=== PATIENT | male | born 1965 | race Caucasian/White ===

== ENCOUNTER 2016-04-13 11:29 | Emergency (ER) | payer OTHER ==
[~2016-04-13] VITALS: Ht 177.8 cm; Wt 90.9 kg
[2016-04-13 11:37] VITALS: BP 137/72; RESP 18; O2SAT 98
--- NOTE | 2016-04-13 11:51 | ED.REPORT ---
HPI-Ear Pain/Problem/FB Date of Service Apr 13, 2016 ED Provider: Victorino Kruger MD Clarke is a 50-year-old male with a chief complaint of right ear pain and reduced hearing. Patient states that he has had cold symptoms for approximately 3 weeks including fever, fatigue, cough. Over the last 3 days he developed right ear pain and reduced hearing associated with tinnitus and right eye pressure as well as mastoid pressure. He also reports a syncopal episode prior to presentation that began while he was kneeling working on a floor. He felt his face become flushed and "woke up on my side" reports a subsequent episode of near syncope. Nursing Notes Stated Complaint: HEAD/EAR PRESSURE Chief Complaint: ENT & Mouth Nursing Notes Reviewed: Yes Allergies: Coded Allergies: codeine (Verified Allergy, Unknown, 12/20/08) Scheduled Amoxicillin (Amoxicillin) 500 Mg Tablet 500 MG PO BID Scheduled PRN Benzonatate (Tessalon Perle) 100 Mg Capsule 100 MG PO TID PRN PRN For Cough General Time Seen by MD: 11:46 Chief Complaint Other Hx Obtained From: Patient Arrived By: Walk-in Onset Occurred: Yesterday Severity: Current: No pain currently Pertinent Negative: Pt denies other symptoms Recent Healthcare: No recent doctor visit, No recent hospitalization Similar Sx Previous: No Past Medical History Past Medical History Reports: Hypertension Past Surgical History Back surgery Family History Father had a OK at 50 but lived another 20 years and was a smoker Smoking History Never Smoker Social History Alcohol Use: 3-5 per day Ambulatory Status Independent Review of Systems Constitutional: Denies: Chills, Fever Complete sys rev & neg: except as marked. Physical Exam General: Well appearing, well developed, well nourished, no acute distress. Head: Atraumatic, normocephalic. No mastoid tenderness. Eyes: No scleral icterus or injection. No discharge. PERRL. Vision grossly intact. Right Ear: Pinna and tragus nontender with manipulation. External auditory canal patent, atraumatic and without discharge. Tympanic erythematous at the superior margin, translucent with a small amount of fluid, no bulging, retraction or perforation. Hearing grossly intact. Mild mastoid tenderness. Left Ear: Pinna and tragus nontender with manipulation. External auditory canal patent, atraumatic and without discharge. Tympanic membrane polanco, shiny and translucent without fluid, bulging, retraction or perforation. Hearing grossly intact. Nose: Symmetrical, nares patent without discharge. No frontal or maxillary sinus tenderness. Mouth/pharynx: normal dentition, mucus membranes moist. Tonsils 2+ and symmetrical, uvula midline. Pharynx noninjected, no cobblestoning or discharge. Voice clear. Neck: No tenderness or lymphadenopathy. Trachea midline. Respiratory: Regular rate and rhythm. Breath sounds present, clear to auscultation and equal bilaterally. No respiratory distress. No increased work of breathing, speaks in complete sentences. Cardiovascular: Regular rate and rhythm, without murmur, gallop or rub. No pedal edema. Skin: Warm and dry. Neurological: Grossly nonfocal. Psychological: Alert and oriented. Speech appropriate, linear and logical. Behavior appropriate. Initial Vital Signs Vital Signs (First) Date Time Temp Pulse Resp B/P Pulse Ox O2 Delivery O2 Flow Rate FiO2 04/13/16 11:37 37.2 60 18 137/72 98 Initial VS: Reviewed General/Constitutional: Awake, Alert ENT: Tympanic membs NL Re-Eval/Medical Decision Med Decision/Clinical Course I discussed this case with Dr. Kruger who met with and examined the patient Otherwise healthy 50-year-old male with chief complaint of right ear pain, reduced hearing and a syncopal episode prior to presentation. This will exam is suggestive of an early stage right otitis media versus otitis externa, malignant otitis externa, mastoiditis Mnire's, acoustic neuroma. We will prescribe antibiotics and Flonase. The syncopal episode is concerning for a dysrhythmia, EKG is normal. Low concern for OK considering lack of chest pressure, pain, diaphoresis. This is most likely a vagal episode. Discharged to home with antibiotics, Flonase, instructions for primary care follow-up on Friday and return precautions. Counseled Regarding: Diagnosis, Lab results, Need for follow-up, When/why to return to ED Discharge & Departure Primary Impression: Otitis media Otitis media type: serous Laterality: right Chronicity: acute Recurrence : not specified Qualified Code: H65.01 - Acute serous otitis media, right ear Discharge Condition All VS Reviewed: Yes Condition: Stable Patient Instructions: Otitis Media (ED) Additional Instructions: Evaluation for right ear pain emergency Department. Patient physical are suggested this is most likely the beginnings of a right ear infection. We will treat this with antibiotics. I also recommend fluticasone (Flonase). This is not a fast acting medication but over a day or 2 should allow the ear to drain better to reduce some of the pressure. We were also concerned about your description of a syncopal episode, however your EKG is normal. At this point we are not very concerned about heart attack or other serious condition. The pain is best treated with 400 mg of ibuprofen (Advil, Motrin) every 6 hours , or 1000 mg of acetaminophen (Tylenol) every 6 hours. These drugs can be taken at the same time for more severe pain. I will provide you with a prescription for Tessalon Perles, which will help with the cough. Follow up with your primary care provider on Friday to be sure this is progressing as expected. Return to emergency department for any new or worsening symptoms including chest pain, pressure, cold sweats, loss of consciousness. Referrals: Tommy Gonzalez MD (PCP) EDSupervising Provider for APC: Victorino Kruger MD Scribe Attestation Portions of this note were transcribed by Hemant Lauren. I, Dr. Kruger personally performed the history, physical exam and medical decision-making; I reviewed and confirmed the accuracy of the information in the transcribed note. Signed by: naila Reza. 04/13/2016, 15:00. Attending Statement I discussed case with HECTOR Chery. Evaluated patient independently and agree with plan as above. R AOM. Oral abx as above. Return precautions given. copies to: Tommy Gonzalez MD, Ben M MD Apr 13, 2016 11:51 HEMANT LAUREN Apr 13, 2016 11:58 Loco Chery PA-C Apr 13, 2016 12:43
[2016-04-13] MEDS ORDERED: Ketorolac 30 mg/mL 2 mL Inj IM ONE (13:25)
[2016-04-13] MEDS ORDERED: AMOX500T2 PO (14:07)
[2016-04-13] MEDS ORDERED: BENZ-12 PO (14:16)
== END 2016-04-13 14:10 | disposition home or self-care (01) ==
LOC: SED 11:29
DX: H65.01 Acute serous otitis media, right ear (principal); I10 Essential (primary) hypertension; Z88.5 Allergy status to narcotic agent
CPT/HCPCS: 93005; 96372; 99284; J1885